=== PATIENT | female | born 1960 | race Caucasian/White ===

== ENCOUNTER 2018-10-15 08:22 | Day surgery (SDC) | payer OTHER ==
[2018-10-15] MEDS ORDERED: Lactated Ringers 1,000 ML IV SCH (09:00)
[2018-10-15] MEDS ORDERED: fentaNYL 100 MCG/2 ML SDV ONE (10:16)
[2018-10-15] MEDS ORDERED: Midazolam 1 MG/ML 2 ML SDV ONE (10:16)
[2018-10-15] MEDS ORDERED: Propofol 200 MG/20 ML SDV ONE (10:17)
[2018-10-15] MEDS ORDERED: Ondansetron 4 MG/2 ML SDV ONE (11:03)
[2018-10-15 12:45] VITALS: BP 125/96; PULSE 81
--- NOTE | 2018-10-15 15:19 | OR ---
DATE OF PROCEDURE: 10/15/2018 PREOPERATIVE DIAGNOSIS: Personal history of colon polyps, strong family history of colon cancer--mother had colon cancer. POSTOPERATIVE DIAGNOSES: Personal history of colon polyps, strong family history of colon cancer--mother had colon cancer; and diverticulosis. PROCEDURE: Colonoscopy to the cecum. ANESTHESIA: IV anesthesia with monitored anesthesia care. SURGEON: Gordy Cordova MD INDICATION: This 58-year-old white female is referred for a colonoscopy. She says her last colonoscopic exam was done 5 years ago. Six years ago, she had a colonoscopy with removal of precancerous polyps. It was clear the last time. Her mother had colon cancer. I counseled her for the procedure, including risks and alternatives, and she gave her informed consent to proceed. DESCRIPTION OF PROCEDURE: The patient was placed in the left lateral decubitus position. IV anesthesia was administered by the Anesthesia Service. Time-out was held. A rectal exam was performed, which was unremarkable. The flexible video Olympus colonoscope was introduced through her anus, up her rectum and out her colon all the way to the cecum. En route, we saw a few rare left-sided diverticula. There was no bleeding or inflammation associated with any of them. Once the cecum was reached, the scope was slowly withdrawn examining the mucosa throughout. No additional mucosal abnormalities were noted. No neoplastic lesions were seen. The scope was retroflexed in the rectum with the distal rectum appearing unremarkable. The scope was straightened and removed. She tolerated the procedure well. Gordy Cordvoa MD /[id number]
== END 2018-10-15 12:52 | disposition home or self-care (01) ==
LOC: JP.SDS 08:22
PROVIDERS: ATTEND Surgery
DX: Z12.11 Encounter for screening for malignant neoplasm of colon (principal); K57.30 Diverticulosis of large intestine without perforation or abscess without bleeding; I10 Essential (primary) hypertension; E11.9 Type 2 diabetes mellitus without complications; E78.5 Hyperlipidemia, unspecified; K21.9 Gastro-esophageal reflux disease without esophagitis; Z88.5 Allergy status to narcotic agent; Z88.4 Allergy status to anesthetic agent; Z88.1 Allergy status to other antibiotic agents; Z91.018 Allergy to other foods; Z88.8 Allergy status to other drugs, medicaments and biological substances; Z86.010 Personal history of colon polyps; Z80.0 Family history of malignant neoplasm of digestive organs
CPT/HCPCS: 45378; J2250; J2405; J2704; J3010; J7120

== ENCOUNTER 2022-08-24 06:32 | Day surgery (SDC) | payer OTHER ==
[2022-08-24] MEDS ORDERED: Bupivacaine 0.5% 30 ML SDV ONE (06:57)
[2022-08-24] MEDS ORDERED: Nozin Nasal Sanitizer NASBOTH ONE (07:00)
[2022-08-24 07:08] LABS: HEMATOCRIT 33.4 % (34.3-46.0); HEMOGLOBIN 10.6 g/dL (11.2-15.5); MEAN CORPUSCULAR HEMOGLOBIN 25.2 pg (31.6-35.5); MEAN CORPUSCULAR HGB CONC 31.7 g/dL (31.6-35.5); MEAN CORPUSCULAR VOLUME 79.3 fL (81.4-99.0); RED BLOOD CELL COUNT 4.21 M/uL (3.77-5.24); WHITE BLOOD CELL COUNT,WBC 5.4 K/uL (3.2-11.0)
[2022-08-24] MEDS ORDERED: Dexamethasone 4 MG/ML SDV ONE (07:27)
[2022-08-24] MEDS ORDERED: Neostigmine Methylsulfate 1 MG/ML 5 ML Syringe ONE (07:27)
[2022-08-24] MEDS ORDERED: Propofol 200 MG/20 ML SDV ONE (07:27)
[2022-08-24] MEDS ORDERED: fentaNYL 250 MCG/5 ML SDV ONE (07:27)
[2022-08-24] MEDS ORDERED: Rocuronium 50 MG/5 ML Vial ONE (07:27)
[2022-08-24] MEDS ORDERED: Glycopyrrolate 0.2 MG/ML 5 ML MDV ONE (07:27)
[2022-08-24] MEDS ORDERED: Succinylcholine 200 MG/10 ML MDV ONE (07:27)
[2022-08-24] MEDS ORDERED: Ondansetron 4 MG/2 ML SDV ONE (07:27)
[2022-08-24] MEDS ORDERED: Lactated Ringers 1,000 ML IV SCH (07:30)
[2022-08-24 07:38] LABS: ALANINE AMINOTRANSFERASE,ALT 27 U/L (12-78); ALBUMIN 3.6 g/dL (3.4-5.0); ALKALINE PHOSPHATASE 66 U/L (46-116); ANION GAP 9.3 mmol/L (5.0-14.0); ASPARTATE AMNIOTRANSFERASE,AST 15 U/L (15-37); BILIRUBIN TOTAL 0.6 mg/dL (0.2-1.0); BLOOD UREA NITROGEN,BUN 11 mg/dL (7-18); CARBON DIOXIDE,CO2 28 mmol/L (21-32); CHLORIDE,CL 103 mmol/L (100-108); CREATININE 0.8 mg/dL (0.6-1.0); EST CRCL DRUG DOSING (CG) 67.29 mL/min; ESTIMATED GFR 84 mL/min (>60); GLUCOSE RANDOM 155 mg/dL (74-106); POTASSIUM,K 3.6 mmol/L (3.6-5.2); PROTEIN TOTAL,TP 7.3 g/dL (6.4-8.2); SODIUM,NA 140 mmol/L (140-148)
[2022-08-24] MEDS ORDERED: ceFAZolin 2 GM in Premix Bag 1 BAG IV ONE (08:00)
[2022-08-24] MEDS ORDERED: Sugammadex Sodium 200 MG/2 ML VIAL ONE (08:45)
[2022-08-24] MEDS ORDERED: droPERidol 5 MG/2 ML SDV ONE (08:46)
[2022-08-24 11:50] VITALS: BP 125/80; PULSE 87
== END 2022-08-24 11:35 | disposition home or self-care (01) ==
LOC: JP.SDS 06:32
PROVIDERS: ATTEND Specialist
DX: S83.232A Complex tear of medial meniscus, current injury, left knee, initial encounter (principal); M94.262 Chondromalacia, left knee; E11.9 Type 2 diabetes mellitus without complications; I10 Essential (primary) hypertension; E78.00 Pure hypercholesterolemia, unspecified; Z88.1 Allergy status to other antibiotic agents; Z88.8 Allergy status to other drugs, medicaments and biological substances; Z91.018 Allergy to other foods
CPT/HCPCS: 29881; 36415; 80053; 85027; A9270; J0330; J1100; J1790; J2405; J2704; J2710; J3010; J3490; J7120

== ENCOUNTER 2023-02-20 05:58 | Day surgery (SDC) | payer OTHER ==
[2023-02-20 06:21] LABS: HEMOGLOBIN 11.9 g/dL (11.2-15.5); MEAN CORPUSCULAR HEMOGLOBIN 24.1 pg (31.6-35.5); MEAN CORPUSCULAR HGB CONC 31.3 g/dL (31.6-35.5); MEAN CORPUSCULAR VOLUME 77.1 fL (81.4-99.0); RED BLOOD CELL COUNT 4.93 M/uL (3.77-5.24); WHITE BLOOD CELL COUNT,WBC 7.4 K/uL (3.2-11.0)
[2023-02-20] MEDS ORDERED: Lactated Ringers 1,000 ML IV SCH (06:30)
[2023-02-20] MEDS ORDERED: Nozin Nasal Sanitizer NASBOTH ONE (06:30)
[2023-02-20] MEDS ORDERED: ceFAZolin 1 GM in Sodium Chloride 0.9% 50 ML IV ONE (06:30)
[2023-02-20 06:42] LABS: ALANINE AMINOTRANSFERASE,ALT 20 U/L (12-78); ALKALINE PHOSPHATASE 70 U/L (46-116); ASPARTATE AMNIOTRANSFERASE,AST 20 U/L (15-37); BILIRUBIN TOTAL 0.7 mg/dL (0.2-1.0); CARBON DIOXIDE,CO2 29 mmol/L (21-32); CHLORIDE,CL 100 mmol/L (100-108); POTASSIUM,K 3.7 mmol/L (3.6-5.2); PROTEIN TOTAL,TP 7.6 g/dL (6.4-8.2); SODIUM,NA 137 mmol/L (140-148)
[2023-02-20 06:47] LABS: A/G RATIO 1.1 (1.2-2.2); ALBUMIN 3.9 g/dL (3.4-5.0); BLOOD UREA NITROGEN,BUN 11 mg/dL (7-18); CREATININE 0.8 mg/dL (0.6-1.0); EST CRCL DRUG DOSING (CG) 67.29 mL/min; ESTIMATED GFR 84 mL/min (>60); GLUCOSE RANDOM 177 mg/dL (74-106)
[2023-02-20 06:58] LABS: ANION GAP 11.7 mmol/L (5.0-14.0)
[2023-02-20] MEDS ORDERED: Bupivacaine 0.5% 30 ML SDV ONE (07:04)
[2023-02-20] MEDS ORDERED: fentaNYL 250 MCG/5 ML SDV ONE (07:18)
[2023-02-20] MEDS ORDERED: Ondansetron 4 MG/2 ML SDV ONE (07:18)
[2023-02-20] MEDS ORDERED: Dexamethasone 4 MG/ML SDV ONE (07:18)
[2023-02-20] MEDS ORDERED: Rocuronium 50 MG/5 ML Vial ONE (07:18)
[2023-02-20] MEDS ORDERED: Glycopyrrolate 0.2 MG/ML 5 ML MDV ONE (07:18)
[2023-02-20] MEDS ORDERED: Propofol 200 MG/20 ML SDV ONE (07:18)
[2023-02-20] MEDS ORDERED: Neostigmine Methylsulfate 1 MG/ML 5 ML Syringe ONE (07:18)
[2023-02-20] MEDS ORDERED: droPERidol 5 MG/2 ML SDV ONE (07:18)
[2023-02-20] MEDS ORDERED: Ketorolac 30 MG/ML SDV ONE (08:35)
[2023-02-20] MEDS ORDERED: Acetaminophen/HYDROcodone 325-5 MG Tab PO PRN (09:32)
[2023-02-20 11:04] VITALS: BP 128/85; PULSE 94
== END 2023-02-20 11:20 | disposition home or self-care (01) ==
LOC: JP.SDS 05:58
PROVIDERS: ATTEND Specialist
DX: S83.242A Other tear of medial meniscus, current injury, left knee, initial encounter (principal); M22.42 Chondromalacia patellae, left knee; E11.9 Type 2 diabetes mellitus without complications; I10 Essential (primary) hypertension; E78.5 Hyperlipidemia, unspecified; X58.XXXA Exposure to other specified factors, initial encounter
CPT/HCPCS: 29881; 36415; 80053; 85027; A9270; J0690; J1100; J1790; J1885; J2405; J2704; J2710; J3010; J3490; J7120